=== PATIENT | female | born 2005 | race Two or more races ===

== ENCOUNTER 2024-01-21 12:31 | Emergency (ER) | payer MEDICAID ==
[~2024-01-21] VITALS: Ht 157.5 cm; Wt 63.6 kg
[2024-01-21 12:34] VITALS: TEMP 98
[2024-01-21 16:30] VITALS: BP 115/81; PULSE 75; RESP 16
== END 2024-01-21 16:44 | disposition home or self-care (01) ==
LOC: EMS 12:32
DX: O26.891 Other specified pregnancy related conditions, first trimester (principal); M54.31 Sciatica, right side; Z3A.01 Less than 8 weeks gestation of pregnancy
CPT/HCPCS: 76801; 84702; 99284